=== PATIENT | male | born 1955 | race African-American/Black ===

== ENCOUNTER 2016-12-30 08:23 | Emergency (ER) | payer OTHER ==
--- NOTE | ~2016-12-30 | CR253 ---
[facility] A Service of [facility] & [facility] RADIOLOGY TEXT RESULTS PATIENT: SHARRI ASHFORD LOCATION: [facility]FT[facility] : 55 UNIT #: [id number] AGE: [address]: JANUSZ COMBS SEX: M ORDER DR: [id number] [facility] [address] [place], [place] [address] [id number] E MR#: [id number] Acc #: [id number] NAME: SHARRI ASHFORD : 1955 SEX: M STUDY DATE/TIME: 12/30/2016 9:09 UNIT: [facility] ROOM: STUDY DESCRIPTION: CR Tibia and Fibula 2 Views Rt Attending Physician: Janusz Combs Aprn Ordering Physician: Janusz Combs Aprn Primary Care Physician: Subhash Cadet M.D. MEDICAL IMAGING REPORT This report is preliminary unless electronic signature is present EXAM Right tib-fib 12/30/2016. INDICATIONS Pain and swelling after leg smashed in car door last week. FINDINGS 2 views of the right lower leg were obtained. No fracture or malalignment is identified. IMPRESSION Negative right lower leg. Dictated by... Zachariah Nelson Jr., M.D. THIS IS AN ELECTRONICALLY VERIFIED REPORT Zachariah Nelson Jr., M.D. at 12/31/2016 2:09 PM AVA/yayo TD: 12/30/2016 14:19 JOB #: [id number] MEDICAL IMAGING REPORT Page 1 of 1 COPY
--- NOTE | ~2016-12-30 | CR21 ---
[facility] A Service of [facility] & [facility] RADIOLOGY TEXT RESULTS PATIENT: SHARRI ASHFORD LOCATION: CFT[facility] : 55 UNIT #: [id number] AGE: [address]: JANUSZ COMBS SEX: M ORDER DR: [id number] [facility] [address] [place], [place] [address] [id number] E MR#: [id number] Acc #: [id number] NAME: SHARRI ASHFORD : 1955 SEX: M STUDY DATE/TIME: 12/30/2016 9:10 UNIT: [facility] ROOM: STUDY DESCRIPTION: CR Ankle Min 3 Views Rt Attending Physician: Janusz Combs Aprn Ordering Physician: Janusz Combs Aprn Primary Care Physician: Subhash Cadet M.D. MEDICAL IMAGING REPORT This report is preliminary unless electronic signature is present EXAM Right ankle 12/30 INDICATIONS Leg pain, smashed in car door last week. Pain and swelling. FINDINGS Three views of the right ankle were obtained. No acute fracture or malalignment is seen. The mortise is intact. There is spurring in the midfoot and there is a talar beak. There is also a plantar calcaneal spur. IMPRESSION No acute fracture or malalignment. Chronic degenerative disease as above. Dictated by... Zachariah Nelson Jr., M.D. THIS IS AN ELECTRONICALLY VERIFIED REPORT Zachariah Nelson Jr., M.D. at 12/31/2016 2:09 PM AVA/sreedhar TD: 12/30/2016 14:13 JOB #: [id number] MEDICAL IMAGING REPORT Page 1 of 1 COPY
== END 2016-12-30 10:02 | disposition home or self-care (01) ==
LOC: CED 08:23 → CFTX 08:23
DX: S90.01XA Contusion of right ankle, initial encounter (principal); S80.11XA Contusion of right lower leg, initial encounter; I10 Essential (primary) hypertension; W23.0XXA Caught, crushed, jammed, or pinched between moving objects, initial encounter; Y92.810 Car as the place of occurrence of the external cause
CPT/HCPCS: 73590; 73610; 99283